=== PATIENT | male | born 1995 | race Caucasian/White ===

== ENCOUNTER → 2020-04-20 11:08 | Outpatient (BNVA) | payer MEDICAID, SELFPAY | PROVIDERS: Family Provider Nurse Practitioner Family; Visit Provider Emergency Medicine | DX: R10.9 Unspecified abdominal pain (principal); R11.2 Nausea with vomiting, unspecified; R19.7 Diarrhea, unspecified; R10.13 Epigastric pain; R11.0 Nausea | CPT/HCPCS: 80053; 83690; 86677 ==

== ENCOUNTER → 2020-04-20 11:08 | Outpatient (BNVA) | payer MEDICAID, SELFPAY | PROVIDERS: Family Provider Nurse Practitioner Family; Visit Provider Emergency Medicine | DX: R10.9 Unspecified abdominal pain (principal); R11.2 Nausea with vomiting, unspecified; R19.7 Diarrhea, unspecified; R10.13 Epigastric pain; R11.0 Nausea | CPT/HCPCS: 85025 ==

== ENCOUNTER → 2022-02-08 12:28 | Outpatient (BNVA) | payer MEDICAID, SELFPAY | PROVIDERS: Family Provider Nurse Practitioner Family; Visit Provider Emergency Medicine | DX: R06.02 Shortness of breath (principal); F12.90 Cannabis use, unspecified, uncomplicated | CPT/HCPCS: 71046 ==

== ENCOUNTER 2022-03-30 08:32 | Outpatient (CLI) | payer MEDICAID, SELFPAY ==
[2022-03-30] MEDS: iohexol 300 mg/mL 100 mL Btl IV (09:13)
--- NOTE | 2022-03-30 09:30 | CT_ITS ---
WS: [id number] CT CHEST TECHNIQUE: Contrast enhanced CT of the chest with coronal and sagittal reformatted images. CLINICAL INFORMATION: F12.90 - Cannabis use, unspecified, uncomplicated COMPARISON: Radiograph February 08, 2022 DLP: 675.[address] scans at [facility] use at least one of these dose optimization techniques: automated e xposure control; mA and/or kV adjustment per patient size (includes targeted exams where dose is matc hed to clinical indication); or iterative reconstruction. FINDINGS:Lungs well aerated. No acute pulmonary infiltrates. Normal endobronchial tree. No evidence o f mass or lesion in the RIGHT hilum. No suspicious pulmonary parenchymal abnormalities. Normal caliber thoracic aorta. No mediastinal or hilar lymphadenopathy. Normal thyroid gland. No axil keisha lymphadenopathy. Adrenal glands are normal. Incidental phrygian cap gallbladder fundus. Normal G E junction. Spleen within normal limits. Adrenal glands are normal. CT/CT chest w con* [id number] IMPRESSION: Normal chest CT.
== END 2022-03-30 08:33 | disposition home or self-care (01) ==
PROVIDERS: Visit Provider Emergency Medicine
DX: R93.89 Abnormal findings on diagnostic imaging of other specified body structures (principal); F12.90 Cannabis use, unspecified, uncomplicated; R06.02 Shortness of breath
CPT/HCPCS: 71260

== ENCOUNTER 2025-07-21 04:15 | Emergency (ER) | payer SELFPAY ==
[2025-07-21 04:19] VITALS: BP 147/98; PULSE 85; RESP 18; TEMP 36.8; O2SAT 97; BMI 26.5
[2025-07-21 04:34] VITALS: BP 136/92; PULSE 96; O2SAT 96
--- NOTE | 2025-07-21 04:56 | ED_ITS ---
HPI - Seizure General: Chief Complaint: Seizure Stated Complaint: possible seizures History of Present Illness: HPI Narrative: Patient is a 29-year-old male presenting with a chief complaint of seizure-like event. Patient states he has not had seizures since he was 10 years old. He states he takes seizure medication, does not recall which one but states that due to insurance problems, he has not been able to afford his medications. Patient states that he has missed his appointment with his neurologist. He has not been ill. He denies any fever, respiratory symptoms, chest pain, shortness of breath, syncope, abdominal pain, nausea, vomiting, diarrhea or dysuria. He states that this happened while he was asleep and laying in bed. He does not know how long it lasted. He states he still feels a little foggy and did bite his tongue. He denies any loss of bowel or bladder control. He has not injured himself. Related Data Home Medications ?Medication ?Instructions ?Recorded ?Confirmed loratadine 10 mg tablet (Claritin) 10 mg PO DAILY 11/2809/18/24 clindamycin HCl 150 mg capsule 150 mg PO TID 09/18/24 09/18/24 Previous Rx's ?Medication ?Instructions ?Recorded fluticasone 250 mcg-salmeterol 50 1 inh inhalation BID #60 ea 02/08/22 mcg/dose blistr powdr for inhalation (Advair Diskus) albuterol sulfate 90 mcg/actuation 2 puff inhalation Q 6H PRN 09/18/24 aerosol inhaler shortness of breath or wheez ing #8.5 grams aspirin 81 mg chewable tablet 81 mg PO DAILY #90 tabs 09/18/24 diazepam 10 mg tablet 10 mg PO Q6H PRN anxiety #30 tabs 09/18/24 lamotrigine 25 mg tablet (Lamictal) 25 mg PO DAILY #90 tabs 09/18/24 lamotrigine 25 mg tablet 25 mg PO DAILY 14 days #30 t abs 07/21/25 Allergies Allergy/AdvReac Type Severity Reaction Status Date / Time No Known Allergies Allergy Verified 09/18/24 10:27 [facility] PFS: Medical History (Updated 07/21/25 @ 06:11 by Emelia Barrett MD) Labile mood Major depression, chronic Generalized anxiety disorder diazepam is what works and doesn't use daily but needs prior to appointments History of CVA (cerebrovascular accident) Primary generalized epilepsy, major Marijuana smoker Intracranial aneurysm Surgical History Hx of hemorrhoidectomy H/O 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 Family History Father Alcohol dependence Drug dependence Bipolar 1 disorder Mother Seizure disorder Asthma Epilepsy Grandmother Breast cancer Colon cancer Alzheimer's dementia Social History Smoking and tobacco/nicotine status: never used tobacco/nicotine Alcohol intake: never Substance/Drug Use: current Substance/Drug use frequency: daily Household members: spouse and other Details: living with his ill grandmother Marital status: Number of children: 0 Highest education level completed: High School Graduate Current occupational status: disabled Current occupation: disabled due to brain injury Current gender identity: Male Physical Exam Narrative: EXAM NARRATIVE: Vital signs were reviewed. Patient is alert and oriented. Patient is breathing comfortably, no increased WOB or accessory muscle use. SpO2 is above 95% on RA. Patient has clear lungs b/l, no rhonchi, wheezing or crackles. No hypotension or tachycardia. Abdomen is soft, nondistended and nontender. Patient is moving all extremities, no deformity or gross injury. No lower extremity edema or asymmetry. Course Vital Signs: Vital signs: Vital Signs Temperature 98.3 F 07/21/25 04:19 Pulse Rate 96 07/21/25 04:34 Respiratory Rate 18 07/21/25 04:19 Blood Pressure 136/92 07/21/25 04:34 Pulse Oximetry 96 07/21/25 04:34 Oxygen Delivery Me thod Room Air 07/21/25 04:34 MDM - Seizure No radiology studies performed this visit Discharge Plan Discharge Patient Disposition: Home Clinical Impression: Seizure disorder Condition: Stable Prescriptions: New lamotrigine 25 mg tablet 25 mg PO DAILY 14 Days Qty: 30 0RF No Action loratadine [Claritin] 10 mg tablet 10 mg PO DAILY fluticasone propion-salmeterol [Advair Diskus] 250-50 mcg/dose blister with device 1 inh inhalation BID Qty: 60 1RF clindamycin HCl 150 mg capsule 150 mg PO TID albuterol sulfate 90 mcg/actuation HFA aerosol inhaler 2 puff inhalation Q6H PRN (Reason: shortness of breath or wheezing) Qty: 8.5 0RF aspirin 81 mg tablet,chewable 81 mg PO DAILY Qty: 90 0RF diazepam 10 mg tablet 10 mg PO Q6H PRN (Reason: anxiety) Qty: 30 0RF lamotrigine [Lamictal] 25 mg tablet 25 mg PO DAILY Qty: 90 3RF Discharge Orders: Discharge ED (Routine); Ordered 07/21/25 Ordered By: Emelia Barrett Referrals: Stephanie Carrera MD [Primary Care Provider, Family Practice] Patient Instructions: Opioid Safety, Pain Management, Patient Portal & Cristiane Instructions, Seizures Activity Restrictions/Additional Instructions: Please use [facility] coupon that you can get on their website or application on your phone to help pay for your medications. Please start taking your medications for seizure as prescribed. Continue to monitor your condition closely at home. If your condition worsens or additional concerns arise, please return to the emergency department for reassessment. Follow-up with your neurologist to soon as possible. Print Language: Vietnamese Coding Level of Care Code ED Casing Cleaner for Martín Hurtado
== END 2025-07-21 06:26 | disposition home or self-care (01) ==
PROVIDERS: Emergency Provider Emergency Medicine; PCP Family Medicine
DX: G40.909 Epilepsy, unspecified, not intractable, without status epilepticus (principal); Z79.82 Long term (current) use of aspirin; Z86.73 Personal history of transient ischemic attack (TIA), and cerebral infarction without residual deficits
CPT/HCPCS: 99283